=== PATIENT | male | born 1955 | race Asian ===

== ENCOUNTER 2018-06-23 19:50 | Inpatient (IN) | payer BC, OTHER ==
[~2018-06-23] VITALS: Ht 185.4 cm; Wt 81.7 kg
--- NOTE | ~2018-06-23 | EKG ---
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
[2018-06-23 19:51] VITALS: BP 127/87
[2018-06-23 20:14] LABS: POC CA IONIZED 4.6 mg/dL (4.5-5.3); POC CREATININE 0.8 mg/dL (0.6-1.3); POC HEMOGLOBIN 15.6 g/dL (14.0-18.0); POC POTASSIUM 3.4 mmol/L (3.5-5.1)
[2018-06-23 20:27] LABS: ABSOLUTE NEUTROPHILS 4.7 thou/uL (1.4-8.2); BASOPHILS 0.6 % (0.0-2.0); EOSINOPHILS 0.7 % (0.0-3.0); HEMATOCRIT 48.1 % (42.0-52.0); HEMOGLOBIN 16.4 gm/dL (14.0-18.0); MCH 32.8 pg (26.0-34.0); MCV 96.6 fL (80.0-100.0); MONOCYTES 5.8 % (1.0-8.0); PLATELET COUNT 190 thou/uL (150-400); POLYS 53.9 % (36.0-66.0); RBC 4.98 mil/uL (4.50-6.00); RDW 13.2 % (10.5-14.5); WBC 8.7 thou/uL (4.0-11.0)
[2018-06-23 20:30] LABS: ANION GAP 14 mmol/L (7-16); BUN 23 mg/dL (7-18); CALCIUM 9.1 mg/dL (8.5-10.1); CHLORIDE 105 mmol/L (98-107); CO2 23 mmol/L (21-32); CREATININE 1.1 mg/dL (0.7-1.3); GLUCOSE 153 mg/dL (74-106); POTASSIUM 3.2 mmol/L (3.5-5.1); SODIUM 142 mmol/L (136-145)
[2018-06-23 20:34] LABS: APTT 23.6 Seconds (24.5-32.8); FIBRINOGEN 265.4 mg/dL (210-360)
[2018-06-23] MEDS ORDERED: ANTIVERT25 MG PO (20:37)
[2018-06-23] MEDS ORDERED: VALIUM2 MG PO (20:37)
[2018-06-23 20:38] LABS: LIPASE 191 U/L (73-393); SGOT 25 U/L (15-37); SGPT 34 U/L (30-65); TOTAL BILIRUBIN 0.9 mg/dL (<0.1-1.0); TOTAL PROTEIN 7.6 g/dL (6.4-8.2); TROPONIN-I <0.06 ng/mL (<0.06)
[2018-06-23 21:15] VITALS: BP 118/81
[2018-06-23 22:34] VITALS: BP 106/78
[2018-06-23 23:08] VITALS: BP 128/89
[2018-06-24 02:14] LABS: CALCIUM 8.6 mg/dL (8.5-10.1); CREATININE 0.9 mg/dL (0.7-1.3)
[2018-06-24 02:15] LABS: POTASSIUM 4.2 mmol/L (3.5-5.1)
[2018-06-24 02:20] LABS: CHOLESTEROL 180 mg/dL (<200); HDL CHOLESTEROL 59 mg/dL (>40); LDL CHOLESTEROL 111 mg/dL (<100); TC:HDL 3.1 Ratio (Not establshd); TRIGLYCERIDE 51 mg/dL (<150); VLDL 10 mg/dL (<40)
[2018-06-24 04:26] VITALS: BP 120/81
[2018-06-24 07:53] VITALS: BP 107/78
[2018-06-24 11:53] VITALS: BP 112/86
[2018-06-24 12:24] VITALS: BP 113/80; BP 117/84
[2018-06-24 12:25] VITALS: BP 112/83
[2018-06-25 23:07] LABS: GLYCOHEMOGLOBIN (HGB A1C) 5.9 % (4.8-5.6)
== END 2018-06-24 12:45 | disposition left against medical advice (07) | DRG 149 ==
LOC: ER 19:50 → 3W 21:19 → EROBS 22:28 → 3W 23:01
PROVIDERS: Emergency Medicine; Nurse Practitioner Acute Care
DX: H81.10 Benign paroxysmal vertigo, unspecified ear (principal); E11.9 Type 2 diabetes mellitus without complications; I48.91 Unspecified atrial fibrillation; E11.65 Type 2 diabetes mellitus with hyperglycemia; I48.2 Chronic atrial fibrillation; E87.6 Hypokalemia; Z82.49 Family history of ischemic heart disease and other diseases of the circulatory system; Z79.82 Long term (current) use of aspirin; Z79.899 Other long term (current) drug therapy; Z79.01 Long term (current) use of anticoagulants; Z53.21 Procedure and treatment not carried out due to patient leaving prior to being seen by health care provider
CPT/HCPCS: 10779

== ENCOUNTER → 2018-08-31 | Outpatient (CLI) | payer BC, OTHER ==
[~2018-08-31] VITALS: Ht 185.4 cm; Wt 78.9 kg
[~2018-08-31] MED LIST: ANTIVERT25 MG PO; MULTAQ 400 MG400 MG PO; PRADAXA150 MG PO; VALIUM2 MG PO
--- NOTE | ~2018-08-31 | CATHLAB ---
[facility] [address] [place] [address] INVASIVE PROCEDURE REPORT Name: JORGE SANDOVAL Room #: REG [facility]#: [id number] Admission: 08/31/18 Attend Phys: Paolo Godoy Discharge: Date of : 57 Date of Service: 08/31/18 1210 Report #: [id number] THIS REPORT FOR: //name// CC: LISA physician/PCP Paolo Gilmore DATE OF SERVICE: 08/31/2018 CARDIOVERSION REPORT INDICATIONS: This is a 63-year-old male patient with symptomatic paroxysmal atrial fibrillation. OPERATING PERSONAL FITNESS MANAGER: Paolo Gilmore M.D. BRIEF DESCRIPTION OF PROCEDURE: After informed consent was obtained, the patient was sedated with 2 mg of IV Versed and 25 mg of Demerol IV push. Continuous oximetric and electrocardiographic monitoring was performed throughout the procedure. Patches had been placed previously in the AP position. Rhythm was synchronized and a biphasic single synchronized shock at 200 joules was performed, which converted the patient to sinus bradycardia. He remained in sinus bradycardia and sedated for some time, remaining in sinus rhythm without ectopics. Patches were then removed. The patient's oxygen levels were satisfactory and did not decrease throughout the entire sedation procedure. The patient tolerated the procedure well, and there were no complications. CONCLUSION: 1. Successful electrical cardioversion from atrial fibrillation to sinus rhythm. 2. Supervision of conscious sedation without incident. <ELECTRONICALLY SIGNED> By: Paolo Gilmore MD 09/02/18 1641 1210 1252 Paolo Gilmore MD /nt
--- NOTE | ~2018-08-31 | EKG ---
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 URIAS : 1955 Requested By: Paolo Gilmore Order Number: [id number] MD: Charlie Marie Measurements Intervals [place] Rate: 59 P: 74 PA: 184 QRS: 95 QRSD: 94 T: 46 QT: 451 QTc: 447 Interpretive Statements Sinus rhythm Probable left atrial enlargement Right axis deviation Borderline low voltage, extremity leads Compared to ECG 06/23/2018 19:54:08 Right-axis deviation now present Atrial fibrillation no longer present Electronically Signed On 08-31-2018 15:25:13 PAPER SALES REPRESENTATIVE by Charlie Marie [email or web address] <ELECTRONICALLY SIGNED> By: Charlie Marie MD 08/31/18 1525 1202 1202 Charlie Marie MD /EPI
[2018-08-31 11:28] VITALS: BP 128/70
[2018-08-31 11:33] LABS: HEMATOCRIT 46.5 % (42.0-52.0); HEMOGLOBIN 15.6 gm/dL (14.0-18.0); MCH 32.2 pg (26.0-34.0); MCHC 33.5 g/dL (28.0-37.0); MCV 96.1 fL (80.0-100.0); RBC 4.84 mil/uL (4.50-6.00); RDW 13.1 % (10.5-14.5); WBC 4.5 thou/uL (4.0-11.0)
[2018-08-31 11:37] LABS: CALCIUM 8.9 mg/dL (8.5-10.1); CREATININE 1.2 mg/dL (0.7-1.3); POTASSIUM 4.5 mmol/L (3.5-5.1)
[2018-08-31 11:42] LABS: APTT 39.3 Seconds (24.5-32.8); PROTIME 10.7 Seconds (9.3-11.4)
[2018-08-31 11:43] LABS: ALBUMIN 3.8 g/dL (3.4-5.0); TOTAL BILIRUBIN 0.8 mg/dL (<0.1-1.0); TOTAL PROTEIN 7.3 g/dL (6.4-8.2)
== END | disposition home or self-care (01) ==
LOC: CATH 10:48
PROVIDERS: Internal Medicine
DX: I48.0 Paroxysmal atrial fibrillation (principal); E11.9 Type 2 diabetes mellitus without complications; E78.5 Hyperlipidemia, unspecified; I49.9 Cardiac arrhythmia, unspecified

== ENCOUNTER → 2021-04-30 | Outpatient (CLI) | payer OTHER, MEDICARE ==
[~2021-04-30] VITALS: Ht 185.4 cm; Wt 80.9 kg
[~2021-04-30] MED LIST changes: +PACERONE 200 M200 M1 PO
[2021-04-30 08:11] VITALS: BP 139/99
[2021-04-30 09:39] LABS: HEMATOCRIT 44.7 % (42.0-52.0); HEMOGLOBIN 14.6 gm/dL (14.0-18.0); MCH 32.1 pg (26.0-34.0); MCHC 32.6 g/dL (28.0-37.0); MCV 98.3 fL (80.0-100.0); RBC 4.55 mil/uL (4.50-6.00); RDW 13.8 % (10.5-14.5); WBC 4.2 thou/uL (4.0-11.0)
[2021-04-30 09:47] LABS: CALCIUM 8.2 mg/dL (8.5-10.1); CREATININE 1.3 mg/dL (0.7-1.3); POTASSIUM 3.9 mmol/L (3.5-5.1)
[2021-04-30 09:53] LABS: ALBUMIN 3.3 g/dL (3.4-5.0); TOTAL BILIRUBIN 0.8 mg/dL (0.2-1.0); TOTAL PROTEIN 6.5 g/dL (6.4-8.2)
--- NOTE | 2021-04-30 12:05 | EKG ---
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 : 1955 Requested By: Paolo Gilmore Order Number: [id number] MD: Gavin Headley Measurements Intervals [place] Rate: 49 P: 37 [place]: 215 QRS: 118 QRSD: 103 T: 32 QT: 432 QTc: 390 Interpretive Statements Sinus bradycardia Left atrial enlargement Borderline low voltage, extremity leads RSR' in V1 or V2, right VCD or RVH Compared to ECG 08/31/2018 12:02:48 Right ventricular hypertrophy now present RSR' in V1 or V2 now present Sinus rhythm no longer present Right-axis deviation no longer present Electronically Signed On 04-30-2021 12:05:14 CDT by Gavin Headley [email or web address] <ELECTRONICALLY SIGNED> By: Gavin Headley MD, [facility] 04/30/21 1205 1114 1114 Gavin Headley MD, [facility] /EPI
--- NOTE | 2021-05-05 15:14 | O ---
[facility] [place] [address] OPERATIVE REPORT Name: JORGE SANDOVAL [id number] Admission: 04/30/21 Attend Phys: Paolo Gilmore Discharge: Date of : 57 Report #: [id number] THIS REPORT FOR: cc: LISA - No family physician/PCP FAM - No family physician/PCP Paolo Gilmore MD ~ DATE OF SERVICE: 04/30/2021 PROCEDURES: 1. Electrical cardioversion. 2. Supervision for conscious sedation. INDICATIONS: A 66-year-old male patient with symptomatic paroxysmal atrial fibrillation, not converted on oral medication. DESCRIPTION OF PROCEDURE: After informed consent was obtained, the patient was brought to the cardiac catheterization prep and hold. The patient underwent continuous oximetric and electrocardiographic monitoring. Versed 2 mg and 25 mg of Demerol were given IV push for sedation. AP paddles were placed and a biphasic synchronized shock at 200 joules was performed. This converted the patient to sinus rhythm with first-degree AV block and occasional PACs. He was subsequently reversed from sedation. The patient tolerated the procedure well. There were no complications. RECOMMENDATIONS: Routine post-cardioversion protocol. <ELECTRONICALLY SIGNED> By: Paolo Gilmore MD 05/05/21 1514 1010 1124 Paolo Gilmore MD /nt
== END ==
LOC: CATH 07:48
PROVIDERS: ATTEND Internal Medicine
DX: I48.0 Paroxysmal atrial fibrillation (principal)

== ENCOUNTER → 2021-05-06 | Outpatient (CLI) | payer OTHER, MEDICARE | LOC: SJCVC 16:32 | PROVIDERS: ATTEND Internal Medicine Cardiovascular Disease | DX: I48.19 Other persistent atrial fibrillation (principal); Z79.899 Other long term (current) drug therapy; Z72.89 Other problems related to lifestyle ==

== ENCOUNTER → 2021-05-14 | Outpatient (CLI) | payer OTHER, MEDICARE | LOC: SJCVCIMAG 08:46 | PROVIDERS: ATTEND Internal Medicine | DX: I08.1 Rheumatic disorders of both mitral and tricuspid valves (principal); I48.91 Unspecified atrial fibrillation ==